=== PATIENT | male | born 1950 | race Caucasian/White ===

== ENCOUNTER → 2016-08-26 | Outpatient (REF) ==
[2016-08-26 11:22] LABS: PSA-TOTAL 0.67 ng/mL (0-4); THYROID STIMULATING HORMONE 3.84 uIU/mL (0.465-4.680)
== END ==
LOC: ZLAB.WCH 10:23
PROVIDERS: Nurse Practitioner Family
DX: Z01.89 Encounter for other specified special examinations (principal)
CPT/HCPCS: G0103

== ENCOUNTER → 2017-09-30 | Outpatient (REF) ==
[2017-09-30 14:21] LABS: THYROID STIMULATING HORMONE 4.37 uIU/mL (0.465-4.680)
[2017-09-30 14:24] LABS: PSA-TOTAL 0.44 ng/mL (0-4)
== END ==
LOC: ZLAB.WCH 13:34
PROVIDERS: Physician Assistant
DX: Z12.5 Encounter for screening for malignant neoplasm of prostate (principal)
CPT/HCPCS: G0103